=== PATIENT | female | born 1965 | race Caucasian/White ===

== ENCOUNTER 2018-11-12 22:51 | Emergency (ER) | payer BC ==
[~2018-11-12] VITALS: Ht 165.1 cm; Wt 99.8 kg
[2018-11-12 23:45] LABS: BILIRUBIN,URINE NEGATIVE (NEG); CLARITY,URINE CLOUDY; COLOR,URINE YELLOW; NITRITE,URINE NEGATIVE (NEG); PH,URINE 6.5; PROTEIN,URINE NEGATIVE (NEG-TRACE)
--- NOTE | 2018-11-12 23:48 | PHYS DOC ---
Past Medical History Past Medical History: Diabetes-Type II, High Cholesterol Past Surgical History: No Surgical History Alcohol Use: Occasionally Drug Use: None Adult General Chief Complaint Chief Complaint: ABDOMINAL PAIN HPI HPI Patient is a 53 year old female with history of diabetes type 2, high cholesterol, who presents to the ED today complaining of bilateral flank pain rated as mild, patient states pain has been going on since this morning. She states yesterday she was diagnosed with UTI and was put on nitrofurantoin. She also states she was diagnosed with a yeast infection and given 1 tablet of fluconazole. Patient denies any nausea vomiting. Denies any fever. Denies any hematuria. Review of Systems Review of Systems Constitutional: Denies fever or chills [] Eyes: Denies change in visual acuity, redness, or eye pain [] HENT: Denies nasal congestion or sore throat [] Respiratory: Denies cough or shortness of breath [] Cardiovascular: No additional information not addressed in HPI [] GI: Denies abdominal pain, nausea, vomiting, bloody stools or diarrhea [] : Reports bilateral flank pain. Denies dysuria or hematuria [] Musculoskeletal: Denies back pain or joint pain [] Integument: Denies rash or skin lesions [] Neurologic: Denies headache, focal weakness or sensory changes [] All other systems were reviewed and found to be within normal limits, except as documented in this note. Current Medications Current Medications Current Medications Medications (Trade) Dose Ordered Sig/Jaylene Start Time Stop Time Status Last Admin Dose Admin Ceftriaxone Sodium (Rocephin) 1 gm 1X ONCE 11/13/18 00:30 11/13/18 00:31 DC 11/13/18 00:35 1 GM Morphine Sulfate (Morphine Sulfate) 5 mg 1X ONCE 11/13/18 00:00 11/13/18 00:01 DC 11/13/18 00:35 5 MG Ondansetron HCl (Zofran) 4 mg 1X ONCE 11/13/18 00:00 11/13/18 00:01 DC 11/13/18 00:34 4 MG Sodium Chloride 1,000 ml @ 1,000 mls/hr 1X ONCE 11/13/18 00:00 11/13/18 00:59 DC 11/13/18 00:00 1,000 MLS/HR Allergies Allergies Allergies Coded Allergies Type Severity Reaction Last Updated Verified No Known Drug Allergies 11/12/18 No Physical Exam Physical Exam Constitutional: Well developed, well nourished, no acute distress, non-toxic appearance. [] HENT: Normocephalic, atraumatic, bilateral external ears normal, oropharynx moist, no oral exudates, nose normal. [] Eyes: PERRLA, EOMI, conjunctiva normal, no discharge. [] Neck: Normal range of motion, no tenderness, supple, no stridor. [] Cardiovascular:Heart rate regular rhythm, no murmur [] Lungs & Thorax: Bilateral breath sounds clear to auscultation [] Abdomen: Bowel sounds normal, soft, no tenderness, no masses, no pulsatile masses. [] Skin: Warm, dry, no erythema, no rash. [] Back: No tenderness, mild bilateral CVA tenderness. [] Extremities: No tenderness, no cyanosis, no clubbing, ROM intact, no edema. [] Neurologic: Alert and oriented X 3, normal motor function, normal sensory function, no focal deficits noted. [] Psychologic: Affect normal, judgement normal, mood normal. [] Current Patient Data Vital Signs Vital Signs Date Time Temp Pulse Resp B/P (MAP) Pulse Ox O2 Delivery O2 Flow Rate FiO2 11/13/18 00:35 16 Room Air 11/12/18 23:25 98.2 98 170/100 (123) 98 98.2 Lab Values Laboratory Tests Test 11/12/18 23:30 11/13/18 00:19 Urine Collection Type Unknown Urine Color Yellow Urine Clarity Cloudy Urine pH 6.5 Urine Specific [place] 1.020 Urine Protein Negative mg/dL (NEG-TRACE) Urine Glucose (UA) 500 mg/dL (NEG) Urine Ketones (Stick) Negative mg/dL (NEG) Urine Blood Negative (NEG) Urine Nitrite Negative (NEG) Urine Bilirubin Negative (NEG) Urine Urobilinogen Dipstick 1.0 mg/dL (0.2 mg/dL) Urine Leukocyte Esterase Moderate (NEG) Urine RBC Rare /HPF (0-2) Urine WBC 11-20 /HPF (0-4) Urine Squamous Epithelial Cells Many /LPF Urine Bacteria Moderate /HPF (0-FEW) Urine Mucus Slight /LPF Urine Opiates Screen Neg (NEG) Urine Methadone Screen Neg (NEG) Urine Barbiturates Neg (NEG) Urine Phencyclidine Screen Neg (NEG) Urine Amphetamine/Methamphetamine Neg (NEG) Urine Benzodiazepines Screen Neg (NEG) Urine Cocaine Screen Neg (NEG) Urine Cannabinoids Screen Neg (NEG) Urine Ethyl Alcohol Neg (NEG) White Blood Count 9.3 x10^3/uL (4.0-11.0) Red Blood Count 4.60 x10^6/uL (3.50-5.40) Hemoglobin 13.4 g/dL (12.0-15.5) Hematocrit 38.6 % (36.0-47.0) Mean Corpuscular Volume 84 fL (79-100) Mean Corpuscular Hemoglobin 29 pg (25-35) Mean Corpuscular Hemoglobin Concent 35 g/dL (31-37) Red Cell Distribution Width 13.1 % (11.5-14.5) Platelet Count 241 x10^3/uL (140-400) Neutrophils (%) (Auto) 61 % (31-73) Lymphocytes (%) (Auto) 29 % (24-48) Monocytes (%) (Auto) 6 % (0-9) Eosinophils (%) (Auto) 3 % (0-3) Basophils (%) (Auto) 1 % (0-3) Neutrophils # (Auto) 5.7 x10^3uL (1.8-7.7) Lymphocytes # (Auto) 2.7 x10^3/uL (1.0-4.8) Monocytes # (Auto) 0.6 x10^3/uL (0.0-1.1) Eosinophils # (Auto) 0.2 x10^3/uL (0.0-0.7) Basophils # (Auto) 0.1 x10^3/uL (0.0-0.2) Sodium Level 136 mmol/L (136-145) Potassium Level 4.1 mmol/L (3.5-5.1) Chloride Level 99 mmol/L (98-107) Carbon Dioxide Level 24 mmol/L (21-32) Anion Gap 13 (6-14) Blood Urea Nitrogen 12 mg/dL (7-20) Creatinine 0.7 mg/dL (0.6-1.0) Estimated GFR (Cockcroft-Gault) 88.2 BUN/Creatinine Ratio 17 (6-20) Glucose Level 249 mg/dL (70-99) H Calcium Level 10.2 mg/dL (8.5-10.1) H Total Bilirubin 0.3 mg/dL (0.2-1.0) Aspartate Amino Transferase (AST) 16 U/L (15-37) Alanine Aminotransferase (ALT) 24 U/L (14-59) Alkaline Phosphatase 69 U/L (46-116) Total Protein 7.8 g/dL (6.4-8.2) Albumin 3.5 g/dL (3.4-5.0) Albumin/Globulin Ratio 0.8 (1.0-1.7) L Lipase 247 U/L (73-393) Ethyl Alcohol Level < 10 mg/dL (0-10) Laboratory Tests 11/13/18 00:19 Laboratory Tests 11/13/18 00:19 EKG EKG [] Radiology/Procedures Radiology/Procedures []PROCEDURE: CT ABDOMEN PELVIS WO CONTRAST CT abdomen and pelvis without contrast. HISTORY: Flank pain CT scan the abdomen and pelvis was done without contrast. Lung bases are clear. There is no effusion. There is diffuse fatty change in the liver. A focal liver lesion is not identified. There are multiple calcified gallstones in the gallbladder. Gallbladder wall is not definitively thickened. There is no pericholecystic fluid. Spleen and adrenal glands are normal. Pancreas is normal. There is no mass or hydronephrosis or calculus in the kidneys. A ureteral calculus is not identified. There is no adenopathy. There is no bowel obstruction. Appendix is normal. Uterus and ovaries are normal. There is spurring at T10-11 thoracic spinal canal with mild narrowing of the canal at that level. There is facet arthritis in the lower lumbar spine. : 1. Diffuse fatty liver change. 2. Cholelithiasis. 3. Normal appendix. 4. No other abdominal or pelvic mass or acute finding noted. 5. Spurring with mild narrowing of the spinal canal at T11-12 PQRS Compliance Statement: One or more of the following individualized dose reduction techniques were utilized for this examination: 1. Automated exposure control 2. Adjustment of the mA and/or kV according to patient size 3. Use of iterative reconstruction technique Electronically signed by: William Waite MD (11/13/2018 12:22 AM) [facility] DICTATED and SIGNED BY: WILLIAM WAITE MD DATE: 11/13/18 002 Course & Med Decision Making Course & Med Decision Making Pertinent Labs and Imaging studies reviewed. (See chart for details) This is a 53-year-old female patient who presents to the ED today complaining of bilateral flank pain since this morning, patient was diagnosed with UTI yesterday and started on nitrofurantoin. She is also diagnosed with yeast infection and given one time dose of fluconazole. Patient is afebrile on arrival to the ED. CBC with normal WBC, CMP noted for glucose of 249-history of diabetes, anion gap is normal. Urine analysis is noted for moderate amount of leukocytes. Patient was given Rocephin IV in the ED. Given IV fluids. CT of the abdomen and pelvic was negative for any acute findings. Patient was noted to have cholelithiasis. Provided general surgeon for follow-up. Discharged with cephalexin. Instructed to follow-up with the PCP the course of next week. Provided return precautions and discharged in stable condition. Dragon Disclaimer Dragon Disclaimer This electronic medical record was generated, in whole or in part, using a voice recognition dictation system. Departure Departure Impression: Primary Impression: Urinary tract infection Additional Impression: Cholelithiasis Disposition: 01 HOME, SELF-CARE Condition: STABLE Referrals: BOBBY DIAZ (PCP) Follow-up next week JF WILDER MD Follow-up in 1-2 weeks Patient Instructions: Cholelithiasis, [id number], Urinary Tract Infection Additional Instructions: You were evaluated in the emergency room and noted to have urinary tract infection. Stop taking the nitrofurantoin, start taking the cephalexin. Push fluids. Ensure you are taking your diabetes medicine. You also have cholelithiasis/gallbladder disease. Follow-up with the provided general surgeon. Follow-up with your primary care doctor next week. Scripts Tramadol Hcl (TRAMADOL HCL) 50 Mg Tablet 50 MG PO Q6HRS PRN for PAIN, #20 TAB Prov: MUTUNGA,EFRA [employer] 11/13/18 Ondansetron (ONDANSETRON ODT) 4 Mg Tab.rapdis 1 TAB PO PRN Q6-8HRS, #16 TAB Prov: MUTUNGA,EFRA [employer] 11/13/18 Cephalexin (CEPHALEXIN) 500 Mg Tablet 1 TAB PO BID, #14 TAB Prov: MUTUNGA,[employer]RA [employer] 11/13/18 Problem Qualifiers Primary Impression: Urinary tract infection Urinary tract infection type: site unspecified Hematuria presence: without hematuria Qualified Codes: N39.0 - Urinary tract infection, site not specified Additional Impression: Cholelithiasis Cholelithiasis location: gallbladder Cholecystitis presence: without cholecystitis Biliary obstruction: without biliary obstruction Qualified Codes: K80.20 - Calculus of gallbladder without cholecystitis without obstruction EFRA CHANG [employer]ATE November 12, 2018 23:47
[2018-11-12 23:49] LABS: SQUAMOUS EPITHELIAL CELL,UR MANY /LPF
[2018-11-12 23:50] LABS: BACTERIA,URINE MODERATE /HPF (0-FEW); RBC,URINE RARE /HPF (0-2)
[2018-11-12 23:59] LABS: BARBITURATES NEG (NEG); BENZODIAZEPINES NEG (NEG); CANNABINOIDS NEG (NEG); COCAINE NEG (NEG); METHADONE NEG (NEG); OPIATES NEG (NEG); PHENCYCLIDINE NEG (NEG)
[2018-11-13] MEDS ORDERED: ONDANSETRON PF 4 MG/2 ML VIAL. IV ONE
[2018-11-13] MEDS ORDERED: MORPHINE SULFATE 10 MG/ML VIAL. IV ONE
[2018-11-13] MEDS ORDERED: IV NORMAL SALINE 1000ML BAG 1,000 ML IV ONE
[2018-11-13 00:01] LABS: AMPHETAMINE/METHAMPHETAMINE NEG (NEG)
--- NOTE | 2018-11-13 00:25 | RAD ---
CT abdomen and pelvis without contrast. HISTORY: Flank pain CT scan the abdomen and pelvis was done without contrast. Lung bases are clear. There is no effusion. There is diffuse fatty change in the liver. A focal liver lesion is not identified. There are multiple calcified gallstones in the gallbladder. Gallbladder wall is not definitively thickened. There is no pericholecystic fluid. Spleen and adrenal glands are normal. Pancreas is normal. There is no mass or hydronephrosis or calculus in the kidneys. A ureteral calculus is not identified. There is no adenopathy. There is no bowel obstruction. Appendix is normal. Uterus and ovaries are normal. There is spurring at T10-11 thoracic spinal canal with mild narrowing of the canal at that level. There is facet arthritis in the lower lumbar spine. : 1. Diffuse fatty liver change. 2. Cholelithiasis. 3. Normal appendix. 4. No other abdominal or pelvic mass or acute finding noted. 5. Spurring with mild narrowing of the spinal canal at T11-12 PQRS Compliance Statement: One or more of the following individualized dose reduction techniques were utilized for this examination: 1. Automated exposure control 2. Adjustment of the mA and/or kV according to patient size 3. Use of iterative reconstruction technique Electronically signed by: William Waite MD (11/13/2018 12:22 AM) [facility]
[2018-11-13 00:26] LABS: BASO # 0.1 x10^3/uL (0.0-0.2); BASO % 1 % (0-3); EOS # 0.2 x10^3/uL (0.0-0.7); EOS % 3 % (0-3); HEMATOCRIT 38.6 % (36.0-47.0); HEMOGLOBIN 13.4 g/dL (12.0-15.5); LYMPH # 2.7 x10^3/uL (1.0-4.8); LYMPH % 29 % (24-48); MEAN CORPUSCULAR HEMOGLOBIN 29 pg (25-35); MEAN CORPUSCULAR HGB CONC 35 g/dL (31-37); MEAN CORPUSCULAR VOLUME 84 fL (79-100); MONO # 0.6 x10^3/uL (0.0-1.1); MONO % 6 % (0-9); NEUT # 5.7 x10^3uL (1.8-7.7); NEUT % 61 % (31-73); PLATELET COUNT 241 x10^3/uL (140-400); RED CELL DISTRIBUTION WIDTH 13.1 % (11.5-14.5); WHITE BLOOD COUNT 9.3 x10^3/uL (4.0-11.0)
[2018-11-13 00:30] VITALS: BP 145/94
[2018-11-13] MEDS ORDERED: cefTRIAXone IV Push 1 GM VIAL. IVP ONE (00:30)
[2018-11-13 00:37] LABS: CALCIUM 10.2 mg/dL (8.5-10.1); CREATININE 0.7 mg/dL (0.6-1.0); GFR 88.2; POTASSIUM 4.1 mmol/L (3.5-5.1)
[2018-11-13 00:42] LABS: ALBUMIN 3.5 g/dL (3.4-5.0); ALBUMIN/GLOBULIN RATIO 0.8 (1.0-1.7); TOTAL BILIRUBIN 0.3 mg/dL (0.2-1.0); TOTAL PROTEIN 7.8 g/dL (6.4-8.2)
[2018-11-13] MEDS ORDERED: TRAM50TA PO (01:22)
[2018-11-13] MEDS ORDERED: CEPH500T PO (01:22)
[2018-11-13] MEDS ORDERED: ONDA4TAB12 PO (01:22)
== END 2018-11-13 01:50 | disposition home or self-care (01) ==
LOC: ER 22:51
DX: K80.20 Calculus of gallbladder without cholecystitis without obstruction (principal); N39.0 Urinary tract infection, site not specified; E11.9 Type 2 diabetes mellitus without complications; E78.00 Pure hypercholesterolemia, unspecified
CPT/HCPCS: 36415; 74176; 80053; 80307; 81001; 83690; 85025; 87086; 96374; 96375; 99285; G0480; J0696; J2270; J2405; J7030